=== PATIENT | female | born 1995 | race Caucasian/White ===

== ENCOUNTER 2021-10-16 23:47 | Emergency (ER) | payer BC ==
[2021-10-17] MEDS ORDERED: Morphine 4 MG/ML VIAL ONE ×2 (00:20→02:14)
[2021-10-17] MEDS ORDERED: Ondansetron PF 4 MG/2 ML Vial ONE ×2 (00:20→02:40)
[2021-10-17 00:38] LABS: BHCG - Serum Negative (NEGATIVE); Pregs Control Background? CLEAR/WHITE (CLR/WHITE); Pregs Control Bar Appear? YES (CONTROL BAR)
[2021-10-17 00:42] LABS: #Monocytes 0.3 10x3/uL (0.0-1.1); %Basophils 0.3 % (0.0-2.0); %Eosinophils 0.4 % (0.0-6.0); %Lymphocytes 30.3 % (18.0-47.0); %Monocytes 4.1 % (0.0-10.0); %Neutrophils 64.8 % (40.0-75.0); Hemoglobin 13.6 g/dL (12.0-15.5); Mean Corpuscular HGB CONC 33.7 g/dL (32.0-36.0); Mean Corpuscular Hemoglobin 28.6 pg (27.0-33.0); Mean Corpuscular Volume 84.8 fl (81.6-98.3); Mean Platelet Volume 9.2 fl (7.4-10.4); Platelet Count 495 10x3/uL (150-450); RBC Distribution Width 12.1 % (11.5-14.5); Red Blood Cell (RBC) Count 4.75 10x6/uL (3.90-5.03); White Blood Cell (WBC) Count 7.6 10x3/uL (3.5-10.5)
[2021-10-17 00:48] LABS: ALT (SGPT) 144 U/L (8-55); AST (SGOT) 84 U/L (5-34); Albumin 4.6 g/dL (3.5-5.0); Alkaline Phosphatase 149 U/L (40-110); Anion Gap 16 mmol/L (10-20); BUN (Urea Nitrogen) 5 mg/dL (7.0-18.7); CK (CPK) 28 U/L (29-168); Calc. Creatinine Clearance 0 mL/min (70-130); Calcium 10.1 mg/dL (7.8-10.44); Carbon Dioxide 23 mmol/L (22-29); Chloride 104 mmol/L (98-107); Globulin 4.2 g/dL (2.4-3.5); Glucose 100 mg/dL (70-105); Lipase 11 U/L (8-78); Magnesium 2.3 mg/dL (1.6-2.6); Protein, Total 8.8 g/dL (6.0-8.3); Sodium 139 mmol/L (136-145)
[2021-10-17 01:33] LABS: Bilirubin Neg (Negative); Blood, Urine Negative (Negative); Clarity Clear (Clear); Glucose, Urine (Dipstick) Normal (Negative); Ketone, Urine Negative (Negative); Leukocyte Negative (Negative); Nitrite Negative (Negative); Protein, Urine (Dipstick) Negative (Neg-Trace)
== END 2021-10-17 02:55 | disposition home or self-care (01) ==
LOC: CSHERS 23:47
DX: K83.01 Primary sclerosing cholangitis (principal); Z79.899 Other long term (current) drug therapy
CPT/HCPCS: 76705; 80053; 81003; 82550; 83690; 83735; 84703; 85025; 96374; 96375; 96376; J2270; J2405

== ENCOUNTER 2022-12-18 08:27 | Emergency (ER) | payer BC ==
[2022-12-18] MEDS ORDERED: Morphine 4 MG/ML VIAL ONE (09:17)
== END 2022-12-18 10:55 | disposition home or self-care (01) ==
LOC: CSHERS 08:27
DX: M47.9 Spondylosis, unspecified (principal)
CPT/HCPCS: 72131; 96372; J2270

== ENCOUNTER 2023-01-21 13:23 | Emergency (ER) | payer BC ==
[~2023-01-21 13:23] MED LIST: Iopamidol 300 61% 100 ML VIAL FS ONE
[2023-01-21] MEDS ORDERED: Morphine 4 MG/ML VIAL ONE (14:36)
[2023-01-21] MEDS ORDERED: Ondansetron PF 4 MG/2 ML Vial ONE (14:40)
[2023-01-21 14:41] LABS: #Eosinphils 0.1 10x3/uL (0.0-0.5); #Monocytes 0.4 10x3/uL (0.0-1.1); #Neutrophils 9.5 10x3/uL (1.5-8.4); %Basophils 0.2 % (0.0-2.0); %Eosinophils 0.6 % (0.0-6.0); %Lymphocytes 12.6 % (18.0-47.0); %Monocytes 3.2 % (0.0-10.0); %Neutrophils 83.1 % (40.0-75.0); Hemoglobin 12.7 g/dL (12.0-15.5); Mean Corpuscular HGB CONC 33.2 g/dL (32.0-36.0); Mean Corpuscular Hemoglobin 28.3 pg (27.0-33.0); Mean Corpuscular Volume 85.3 fl (81.6-98.3); Mean Platelet Volume 9.3 fl (7.4-10.4); Platelet Count 443 10x3/uL (150-450); RBC Distribution Width 12.4 % (11.5-14.5); Red Blood Cell (RBC) Count 4.49 10x6/uL (3.90-5.03); White Blood Cell (WBC) Count 11.4 10x3/uL (3.5-10.5)
[2023-01-21 14:53] LABS: BHCG - Serum Negative (NEGATIVE); Pregs Control Background? CLEAR/WHITE (CLR/WHITE); Pregs Control Bar Appear? YES (CONTROL BAR)
[2023-01-21 14:55] LABS: ALT (SGPT) 104 U/L (8-55); AST (SGOT) 82 U/L (5-34); Albumin 4.2 g/dL (3.5-5.0); Alkaline Phosphatase 204 U/L (40-110); Anion Gap 15 mmol/L (10-20); BUN (Urea Nitrogen) 10 mg/dL (7.0-18.7); Calc. Creatinine Clearance 0 mL/min (70-130); Calcium 9.9 mg/dL (7.8-10.44); Carbon Dioxide 23 mmol/L (22-29); Chloride 100 mmol/L (98-107); Estimated GFR 105; Glucose 131 mg/dL (70-105); Lipase 12 U/L (8-78); Potassium 3.9 mmol/L (3.5-5.1); Protein, Total 8.2 g/dL (6.0-8.3); Sodium 134 mmol/L (136-145)
[2023-01-21 15:35] LABS: Bilirubin Neg (Negative); Blood, Urine Negative (Negative); Clarity Clear (Clear); Glucose, Urine (Dipstick) Normal (Negative); Ketone, Urine Negative (Negative); Leukocyte Negative (Negative); Nitrite Negative (Negative); Protein, Urine (Dipstick) Negative (Neg-Trace); Specific Gravity, Urine 1.005 (1.005-1.030); Urobilinogen Normal mg/dL (Less than 2)
== END 2023-01-21 16:31 | disposition home or self-care (01) ==
LOC: CSHERS 13:23
DX: R10.811 Right upper quadrant abdominal tenderness (principal); D72.829 Elevated white blood cell count, unspecified
CPT/HCPCS: 74177; 80053; 81003; 83690; 84703; 85025; 96361; 96374; J2270; J2405; Q9967

== ENCOUNTER 2023-11-20 05:09 | Emergency (ER) | payer BC ==
[2023-11-20 05:36] LABS: Bilirubin Neg (Negative); Blood, Urine 10 (Negative); Clarity Slightly Cloudy (Clear); Glucose, Urine (Dipstick) Normal (Negative); Ketone, Urine Negative (Negative); Leukocyte Negative (Negative); Nitrite Negative (Negative); Protein, Urine (Dipstick) 15 mg/dl (Neg-Trace); Specific Gravity, Urine 1.025 (1.005-1.030); Urobilinogen Normal mg/dL (Less than 2)
[2023-11-20] MEDS ORDERED: Ondansetron PF 4 MG/2 ML Vial ONE (05:44)
[2023-11-20] MEDS ORDERED: Morphine 4 MG/ML VIAL ONE (05:44)
[2023-11-20 05:53] LABS: Bacteria/HPF Rare-Few HPF (None Seen); CAUTI Indications for Culture Fever or rigors; Urine Culture Reflex No No; WBC/HPF 0-3 HPF (0-3)
[2023-11-20 06:00] LABS: BHCG - Serum Negative (NEGATIVE); Pregs Control Background? CLEAR/WHITE (CLR/WHITE); Pregs Control Bar Appear? YES (CONTROL BAR)
[2023-11-20 06:07] LABS: ALT (SGPT) 96 U/L (8-55); AST (SGOT) 63 U/L (5-34); Albumin 4.1 g/dL (3.5-5.0); Alkaline Phosphatase 202 U/L (40-110); Anion Gap 17 mmol/L (10-20); BUN (Urea Nitrogen) 9 mg/dL (7.0-18.7); Bilirubin, Total 0.7 mg/dL (0.2-1.2); Calc. Creatinine Clearance 0 mL/min (70-130); Calcium 9.5 mg/dL (7.8-10.44); Carbon Dioxide 19 mmol/L (22-29); Chloride 106 mmol/L (98-107); Estimated GFR 115; Glucose 100 mg/dL (70-105); Potassium 3.9 mmol/L (3.5-5.1); Protein, Total 8.1 g/dL (6.0-8.3); Sodium 138 mmol/L (136-145)
[2023-11-20 06:10] LABS: Lipase 8 U/L (8-78)
[2023-11-20 06:23] LABS: #Eosinphils 0.2 10x3/uL (0.0-0.5); #Monocytes 0.4 10x3/uL (0.0-1.1); #Neutrophils 4.5 10x3/uL (1.5-8.4); %Basophils 0.2 % (0.0-2.0); %Lymphocytes 37.7 % (18.0-47.0); %Monocytes 4.5 % (0.0-10.0); %Neutrophils 55.4 % (40.0-75.0); Hematocrit 39.4 % (34.9-44.5); Hemoglobin 13.4 g/dL (12.0-15.5); Mean Corpuscular Hemoglobin 28.9 pg (27.0-33.0); Mean Corpuscular Volume 84.9 fl (81.6-98.3); Mean Platelet Volume 9.4 fl (7.4-10.4); Platelet Count 460 10x3/uL (150-450); RBC Distribution Width 12.5 % (11.5-14.5); Red Blood Cell (RBC) Count 4.64 10x6/uL (3.90-5.03); White Blood Cell (WBC) Count 8.2 10x3/uL (3.5-10.5)
[2023-11-20 06:41] LABS: Acetaminophen Less than 10 mcg/mL (10.0-30.0); Alcohol Less than 10.0 mg/dL (Less than 10); Salicylate Less than 8.0 mg/dL (15.0-30.0)
[2023-11-20 07:26] LABS: INR-International Normal Ratio 0.9; Prothrombin Time 9.3 sec (9.5-12.1)
== END 2023-11-20 09:52 | disposition home or self-care (01) ==
LOC: CSHERS 05:09
DX: K83.01 Primary sclerosing cholangitis (principal)
CPT/HCPCS: 36415; 76705; 80053; 80307; 81001; 83690; 83735; 84703; 85025; 85610; 85730; 96374; J2270; J2405

== ENCOUNTER 2024-03-27 04:51 | Emergency (ER) | payer BC ==
[2024-03-27] MEDS ORDERED: predniSONE 20 MG TAB ONE (05:13)
[2024-03-27] MEDS ORDERED: Ipratropium/Albuterol 3 ML NEB ONE (05:17)
== END 2024-03-27 05:40 | disposition home or self-care (01) ==
LOC: CSHERS 04:51
DX: J18.9 Pneumonia, unspecified organism (principal); H66.92 Otitis media, unspecified, left ear; J40 Bronchitis, not specified as acute or chronic; R06.2 Wheezing
CPT/HCPCS: 71046; 94640; 94760; J7512; J7620

== ENCOUNTER 2024-04-30 19:56 | Observation (INO) | payer BC ==
[2024-04-30] MEDS ORDERED: Acetaminophen 500 MG TAB ONE (21:05)
[2024-04-30 21:24] LABS: #Basophils 0.01 10x3/uL (0.0-0.2); #Eosinphils 0.03 10x3/uL (0.0-0.5); #Monocytes 0.38 10x3/uL (0.0-1.1); #Neutrophils 13.36 10x3/uL (1.5-8.4); %Basophils 0.1 % (0.0-2.0); %Eosinophils 0.2 % (0.0-6.0); %Lymphocytes 4.5 % (18.0-47.0); %Monocytes 2.6 % (0.0-10.0); %Neutrophils 92.3 % (40.0-75.0); Hematocrit 42.6 % (34.9-44.5); Hemoglobin 14.4 g/dL (12.0-15.5); Mean Corpuscular HGB CONC 33.8 g/dL (32.0-36.0); Mean Corpuscular Hemoglobin 28.6 pg (27.0-33.0); Mean Corpuscular Volume 84.7 fL (81.6-98.3); Mean Platelet Volume 8.6 fL (7.4-10.4); Platelet Count 466 10x3/uL (150-450); RBC Distribution Width 13.1 % (11.5-14.5); Red Blood Cell (RBC) Count 5.03 10x6/uL (3.90-5.03); White Blood Cell (WBC) Count 14.5 10x3/uL (3.5-10.5)
[2024-04-30 21:28] LABS: BHCG - Serum Negative (NEGATIVE); Pregs Control Background? CLEAR/WHITE (CLR/WHITE); Pregs Control Bar Appear? YES (CONTROL BAR)
[2024-04-30 21:35] LABS: ALT (SGPT) 52 U/L (8-55); AST (SGOT) 45 U/L (5-34); Albumin 3.7 g/dL (3.5-5.0); Alkaline Phosphatase 240 U/L (40-110); Anion Gap 15 mmol/L (10-20); BUN (Urea Nitrogen) 11 mg/dL (7.0-18.7); Calc. Creatinine Clearance 0 mL/min (70-130); Calcium 9.4 mg/dL (7.8-10.44); Carbon Dioxide 24 mmol/L (22-29); Chloride 103 mmol/L (98-107); Estimated GFR 97; Globulin 4.6 g/dL (2.4-3.5); Glucose 103 mg/dL (70-105); Lipase 6 U/L (8-78); Protein, Total 8.3 g/dL (6.0-8.3); Sodium 138 mmol/L (136-145)
[2024-04-30] MEDS ORDERED: Ondansetron PF 4 MG/2 ML Vial ONE ×2 (21:54→22:37)
[2024-04-30] MEDS ORDERED: Piperacillin/Tazobactam 4.5 GM VIAL ONE (21:55)
[2024-04-30 21:57] LABS: Bilirubin Neg (Negative); Blood, Urine 25 (Negative); Clarity Clear (Clear); Glucose, Urine (Dipstick) Normal (Negative); Ketone, Urine Negative (Negative); Leukocyte Negative (Negative); Nitrite Negative (Negative); Protein, Urine (Dipstick) Negative (Neg-Trace); Specific Gravity, Urine 1.015 (1.005-1.030)
[2024-04-30 22:08] LABS: Bacteria/HPF Rare-Few HPF (None Seen); CAUTI Indications for Culture Pregnancy; Mucous/LPF Rare LPF (<2+); RBC/HPF 0-3 HPF (0-3); Squamous Epithelial 0-3 HPF (0-3); WBC/HPF 0-3 HPF (0-3)
[2024-04-30 22:09] LABS: Urine Culture Reflex Yes Yes
[2024-04-30] MEDS ORDERED: Ondansetron ODT 4 MG TAB PO PRN (23:34)
[2024-05-01 01:06] VITALS: BMI 67.6
[2024-05-01 01:06] LABS: HBsAg Index 0.17 S/CO (0-0.99); Hep B Surf Ag Non-Reactive S/CO (NonReactive)
[2024-05-01] MEDS: Ketorolac Tromethamine 30 MG (1 mL) VIAL IVP PRN (01:28)
[2024-05-01] MEDS: cefTRIAXone\\ROCEPHIN 1 GM in Sodium Chloride 0.9% 100 ML IVPB SCH (01:29)
[2024-05-01] MEDS: metroNIDAZOLE 500 MG in Premix 1 BAG IVPB SCH (01:29)
[2024-05-01] MEDS: Sodium Chloride 0.9% 1,000 ML IV SCH ×2 (02:25→15:23)
[2024-05-01] MEDS: Ondansetron PF 4 MG/2 ML Vial IVP PRN (04:08)
[2024-05-01 04:51] LABS: #Basophils 0.01 10x3/uL (0.0-0.2); #Eosinphils 0.01 10x3/uL (0.0-0.5); #Monocytes 0.36 10x3/uL (0.0-1.1); #Neutrophils 9.48 10x3/uL (1.5-8.4); %Basophils 0.1 % (0.0-2.0); %Eosinophils 0.1 % (0.0-6.0); %Lymphocytes 9.3 % (18.0-47.0); %Monocytes 3.3 % (0.0-10.0); %Neutrophils 86.8 % (40.0-75.0); Hematocrit 36.5 % (34.9-44.5); Hemoglobin 12.4 g/dL (12.0-15.5); Mean Corpuscular Volume 85.5 fL (81.6-98.3); Mean Platelet Volume 8.4 fL (7.4-10.4); Platelet Count 377 10x3/uL (150-450); Red Blood Cell (RBC) Count 4.27 10x6/uL (3.90-5.03); White Blood Cell (WBC) Count 10.9 10x3/uL (3.5-10.5)
[2024-05-01] MEDS: Morphine 2 MG/ML VIAL SLOW IVP PRN (04:59)
[2024-05-01 05:06] LABS: ALT (SGPT) 49 U/L (8-55); AST (SGOT) 47 U/L (5-34); Albumin 3.1 g/dL (3.5-5.0); Alkaline Phosphatase 191 U/L (40-110); Anion Gap 15 mmol/L (10-20); BUN (Urea Nitrogen) 8 mg/dL (7.0-18.7); Bilirubin, Total 1.3 mg/dL (0.2-1.2); Calc. Creatinine Clearance 331 mL/min (70-130); Carbon Dioxide 22 mmol/L (22-29); Chloride 105 mmol/L (98-107); Estimated GFR 113; Globulin 3.9 g/dL (2.4-3.5); Glucose 80 mg/dL (70-105); Potassium 3.8 mmol/L (3.5-5.1); Sodium 138 mmol/L (136-145)
[2024-05-01] MEDS: HYDROcodone/Acetaminophen 5/325 mg Tablet PO PRN (06:18)
[2024-05-01] MEDS: Enoxaparin 40 MG (0.4 mL) SYRINGE SC SCH (08:33)
[2024-05-01] MEDS: Pantoprazole 40 MG VIAL IVP SCH (08:33)
[2024-05-01] MEDS: Rifaximin 550 MG TAB PO SCH (10:01)
[2024-05-01 13:35] LABS: HBCM Index 0.07 S/CO (0-0.79); Hep A IgM AB NONREACTIVE (NonReactive); Hep A IgM S/CO 0.18 S/CO (0-0.79); Hep C IgG Ab NONREACTIVE S/CO (NonReactive); Hep C Index 0.13 S/CO (0-0.79); Hepatitis B Core IgM Abs NONREACTIVE S/CO (NonReactive)
[2024-05-02 07:13] LABS: #Eosinphils 0.05 10x3/uL (0.0-0.5); #Monocytes 0.32 10x3/uL (0.0-1.1); %Eosinophils 1.1 % (0.0-6.0); %Lymphocytes 31.6 % (18.0-47.0); %Monocytes 6.9 % (0.0-10.0); %Neutrophils 60.2 % (40.0-75.0); Hematocrit 32.4 % (34.9-44.5); Mean Corpuscular Hemoglobin 29.2 pg (27.0-33.0); Mean Corpuscular Volume 85.9 fL (81.6-98.3); Mean Platelet Volume 8.4 fL (7.4-10.4); Platelet Count 302 10x3/uL (150-450); Red Blood Cell (RBC) Count 3.77 10x6/uL (3.90-5.03); White Blood Cell (WBC) Count 4.7 10x3/uL (3.5-10.5)
[2024-05-02 07:27] LABS: ALT (SGPT) 43 U/L (8-55); AST (SGOT) 35 U/L (5-34); Albumin 2.8 g/dL (3.5-5.0); Alkaline Phosphatase 163 U/L (40-110); Anion Gap 15 mmol/L (10-20); BUN (Urea Nitrogen) 5 mg/dL (7.0-18.7); Bilirubin, Total 0.7 mg/dL (0.2-1.2); Calc. Creatinine Clearance 340 mL/min (70-130); Calcium 8.5 mg/dL (7.8-10.44); Carbon Dioxide 19 mmol/L (22-29); Chloride 108 mmol/L (98-107); Estimated GFR 116; Globulin 3.6 g/dL (2.4-3.5); Glucose 103 mg/dL (70-105); Potassium 3.1 mmol/L (3.5-5.1); Protein, Total 6.4 g/dL (6.0-8.3); Sodium 139 mmol/L (136-145)
[2024-05-02] MEDS ORDERED: Potassium Chloride 40 MEQ in Premix 1 BAG IVPB SCH (08:15)
[2024-05-02] MEDS: Polyethylene Glycol 3350 17 GM Packet PO SCH (09:23)
[2024-05-02] MEDS: Potassium Chloride 20 MEQ in Premix 1 BAG IVPB SCH (09:24)
[2024-05-02] MEDS: Albuterol 2.5 MG (3 mL) NEB NEB PRN (10:10)
[2024-05-02] MEDS: Acetaminophen 325 MG TAB PO PRN (13:22)
[2024-05-02 16:29] VITALS: BP 101/61; TEMP 98.5
[2024-05-03 11:41] LABS: Campy jejuni + coli by PCR Negative (Negative); STEC Shiga Toxin 1+2 Negative (Negative); Salmonella spp. by PCR Negative (Negative); Shigella spp + EIEC by PCR Negative (Negative)
== END 2024-05-02 18:00 | disposition home or self-care (01) ==
LOC: CSHERS 19:56 → CSHTELE 05-01 01:02
PROVIDERS: ADMIT Internal Medicine; ATTEND Internal Medicine
DX: R10.30 Lower abdominal pain, unspecified (principal); K83.09 Other cholangitis; J45.909 Unspecified asthma, uncomplicated; F41.9 Anxiety disorder, unspecified; Z90.89 Acquired absence of other organs; Z91.048 Other nonmedicinal substance allergy status; Z88.8 Allergy status to other drugs, medicaments and biological substances
CPT/HCPCS: 36415; 71045; 74177; 76705; 80053; 80074; 81001; 82140; 83605; 83690; 83880; 84145; 84443; 84703; 85025; 87040; 87086; 87505; 93005; 94640; 96361; 96365; 96375; 96376; C9113; J0696; J1650; J1885; J2272; J2405; J2543; J3480; J3490; J7050; J7611

== ENCOUNTER 2024-05-04 06:53 | Emergency (ER) | payer BC ==
[2024-05-04 08:07] LABS: #Basophils 0.02 10x3/uL (0.0-0.2); #Eosinphils 0.07 10x3/uL (0.0-0.5); #Monocytes 0.48 10x3/uL (0.0-1.1); #Neutrophils 8.34 10x3/uL (1.5-8.4); %Basophils 0.2 % (0.0-2.0); %Eosinophils 0.6 % (0.0-6.0); %Lymphocytes 20.6 % (18.0-47.0); %Monocytes 4.3 % (0.0-10.0); Hematocrit 36.7 % (34.9-44.5); Hemoglobin 12.7 g/dL (12.0-15.5); Mean Corpuscular HGB CONC 34.6 g/dL (32.0-36.0); Mean Corpuscular Volume 83.8 fL (81.6-98.3); Mean Platelet Volume 8.8 fL (7.4-10.4); Platelet Count 466 10x3/uL (150-450); RBC Distribution Width 12.7 % (11.5-14.5); Red Blood Cell (RBC) Count 4.38 10x6/uL (3.90-5.03); White Blood Cell (WBC) Count 11.3 10x3/uL (3.5-10.5)
[2024-05-04 08:10] LABS: BHCG - Serum Negative (NEGATIVE); Pregs Control Background? CLEAR/WHITE (CLR/WHITE); Pregs Control Bar Appear? YES (CONTROL BAR)
[2024-05-04 08:20] LABS: ALT (SGPT) 69 U/L (8-55); AST (SGOT) 62 U/L (5-34); Albumin 3.2 g/dL (3.5-5.0); Alkaline Phosphatase 191 U/L (40-110); Anion Gap 16 mmol/L (10-20); BUN (Urea Nitrogen) 9 mg/dL (7.0-18.7); Bilirubin, Total 1.4 mg/dL (0.2-1.2); Calc. Creatinine Clearance 0 mL/min (70-130); Calcium 9.8 mg/dL (7.8-10.44); Carbon Dioxide 22 mmol/L (22-29); Chloride 104 mmol/L (98-107); Estimated GFR 116; Globulin 4.3 g/dL (2.4-3.5); Glucose 102 mg/dL (70-105); Lipase 25 U/L (8-78); Potassium 3.5 mmol/L (3.5-5.1); Protein, Total 7.5 g/dL (6.0-8.3); Sodium 138 mmol/L (136-145)
== END 2024-05-04 09:34 | disposition home or self-care (01) ==
LOC: CSHERS 06:53
DX: N93.9 Abnormal uterine and vaginal bleeding, unspecified (principal)
CPT/HCPCS: 36415; 76856; 80053; 83690; 84703; 85025; 93005

== ENCOUNTER 2024-05-21 18:05 | Emergency (ER) | payer BC ==
[2024-05-21] MEDS ORDERED: Morphine 4 MG/ML VIAL ONE (18:41)
[2024-05-21] MEDS ORDERED: Ondansetron PF 4 MG/2 ML Vial ONE (18:41)
[2024-05-21 19:05] LABS: #Basophils 0.02 10x3/uL (0.0-0.2); #Eosinphils 0.18 10x3/uL (0.0-0.5); #Monocytes 0.46 10x3/uL (0.0-1.1); #Neutrophils 6.04 10x3/uL (1.5-8.4); %Basophils 0.2 % (0.0-2.0); %Eosinophils 1.7 % (0.0-6.0); %Monocytes 4.4 % (0.0-10.0); %Neutrophils 57.4 % (40.0-75.0); Hematocrit 41.1 % (34.9-44.5); Hemoglobin 13.8 g/dL (12.0-15.5); Mean Corpuscular HGB CONC 33.6 g/dL (32.0-36.0); Mean Corpuscular Hemoglobin 28.6 pg (27.0-33.0); Mean Corpuscular Volume 85.1 fL (81.6-98.3); Mean Platelet Volume 8.6 fL (7.4-10.4); Platelet Count 470 10x3/uL (150-450); RBC Distribution Width 12.7 % (11.5-14.5); Red Blood Cell (RBC) Count 4.83 10x6/uL (3.90-5.03); White Blood Cell (WBC) Count 10.5 10x3/uL (3.5-10.5)
[2024-05-21 19:18] LABS: ALT (SGPT) 50 U/L (8-55); AST (SGOT) 35 U/L (5-34); Albumin 4.1 g/dL (3.5-5.0); Alkaline Phosphatase 202 U/L (40-110); Anion Gap 15 mmol/L (10-20); BUN (Urea Nitrogen) 7 mg/dL (7.0-18.7); Bilirubin, Total 0.6 mg/dL (0.2-1.2); Calc. Creatinine Clearance 0 mL/min (70-130); Calcium 10.1 mg/dL (7.8-10.44); Carbon Dioxide 25 mmol/L (22-29); Chloride 101 mmol/L (98-107); Estimated GFR 114; Globulin 4.6 g/dL (2.4-3.5); Glucose 107 mg/dL (70-105); Lipase 9 U/L (8-78); Protein, Total 8.7 g/dL (6.0-8.3); Sodium 137 mmol/L (136-145)
[2024-05-21] MEDS ORDERED: Ketorolac Tromethamine 30 MG (1 mL) VIAL ONE (20:23)
== END 2024-05-21 20:30 | disposition home or self-care (01) ==
LOC: CSHERS 18:05
DX: R10.9 Unspecified abdominal pain (principal)
CPT/HCPCS: 76705; 80053; 83605; 83690; 85025; 86850; 86900; 86901; 96374; 96375; J1885; J2405